=== PATIENT | male | born 1990 | race Caucasian/White ===

== ENCOUNTER 2021-07-19 16:19 | Emergency (ER) | payer BC, OTHER ==
[2021-07-19 16:24] VITALS: BP 115/75; PULSE 82; TEMP 97.6; BMI 28.7
[2021-07-19] MEDS ORDERED: LIDOCAINE 5% TOPICAL PATCH TP ONE (18:29)
[2021-07-19] MEDS ORDERED: LIDOCAINE 5% TOPICAL PATCH ONE (18:34)
[2021-07-20] MEDS ORDERED: LIDOCAINE PATCH REMOVAL MC SCH (07:00)
== END 2021-07-19 19:18 | disposition home or self-care (01) ==
LOC: JERFT 16:19
DX: M54.50 Low back pain, unspecified (principal)
CPT/HCPCS: 99283-25

== ENCOUNTER 2024-02-04 04:44 | Day surgery (SDC) | payer OTHER ==
[2024-02-01 16:34] VITALS: BMI 31.5
[~2024-02-04 04:44] MED LIST: ONDANSETRON 4 MG/2 ML VIAL IVPUSH PRN; PROMETHAZINE HCL 25 MG/1 ML VIAL IVPB PRN; oxyCODONE HCL 5 MG TABLET PO PRN
[2024-02-04] MEDS ORDERED: BUPIVACAINE HCL/PF 0.5% (5MG/ML) 10 ML VIAL ONE (07:14)
[2024-02-04] MEDS ORDERED: SEVOFLURANE 250 ML BTL ONE ×2 (07:16)
[2024-02-04] MEDS ORDERED: SUCCINYLCHOLINE CHLORIDE 200 MG/10 ML SYRINGE ONE (07:20)
[2024-02-04] MEDS ORDERED: DEXAMETHASONE SOD PHOSPHATE 4 MG/1 ML VIAL ONE (07:20)
[2024-02-04] MEDS ORDERED: ONDANSETRON 4 MG/2 ML VIAL ONE (07:21)
[2024-02-04] MEDS ORDERED: PROPOFOL 40 ML ONE (07:22)
[2024-02-04] MEDS ORDERED: LIDOCAINE HCL/PF 2% SDV 5ML VIAL ONE (07:22)
[2024-02-04] MEDS ORDERED: MIDAZOLAM HCL 2 MG/2 ML SINGLE DOSE VIAL ONE (07:23)
[2024-02-04] MEDS ORDERED: ceFAZolin SODIUM 1 GM VIAL ONE (07:24)
[2024-02-04] MEDS ORDERED: ACETAMINOPHEN INJECTION 100 ML ONE (07:28)
[2024-02-04] MEDS ORDERED: LIDOCAINE HCL 1%, 10 MG/ML (20ML VIAL) ONE (08:17)
[2024-02-04] MEDS: ceFAZolin SODIUM 1 GM VIAL IVPB ONE (08:26)
[2024-02-04] MEDS ORDERED: DEXTROSE 5%-0.45% SALINE 1,000 ML IV SCH (08:30)
[2024-02-04] MEDS: LIDOCAINE HCL 1%, 10 MG/ML (20ML VIAL) NR ONE (08:36)
[2024-02-04 11:23] VITALS: BP 103/64; PULSE 61; RESP 14; TEMP 97.4
[2024-02-04] MEDS ORDERED: LACTATED RINGERS SOLUTION 1,000 ML IV SCH (19:30)
== END 2024-02-04 13:14 | disposition home or self-care (01) ==
LOC: JASU-SURG 04:44
PROVIDERS: ATTEND Urology
PROC: 0VBQ0ZZ Excision of Bilateral Vas Deferens, Open Approach (ICD-10-PCS; principal; 2024-02-04 08:00)
PROC: 0VTTXZZ Resection of Prepuce, External Approach (ICD-10-PCS; 2024-02-04 08:00)
DX: Z30.2 Encounter for sterilization (principal); N47.1 Phimosis
CPT/HCPCS: 88302-TC; 88304-TC; 94760; J0131